=== PATIENT | male | born 1960 | race Caucasian/White ===

== ENCOUNTER 2018-12-21 06:04 | Day surgery (SDC) | payer MEDICARE, BC ==
[2018-12-21] MEDS ORDERED: PROPOFOL 20 ML (07:34)
[2018-12-21] MEDS ORDERED: CLINDAMYCIN 900 MG/D5W (PMX) 50 ML IVPB (07:34)
[2018-12-21] MEDS ORDERED: LIDOCAINE 2% (SDV) 5 ML INJ (07:34)
[2018-12-21] MEDS ORDERED: FENTAnyl 50 MCG/ML VIAL (07:35)
[2018-12-21] MEDS ORDERED: MIDAZOLAM 1 MG/ML 2 ML INJ (07:35)
[2018-12-21] MEDS ORDERED: BUPIVACAINE 0.5% (SDV) 30 ML INJ (07:42)
[2018-12-21] MEDS ORDERED: ONDANSETRON 4 MG INJ (08:14)
[2018-12-21] MEDS ORDERED: METOCLOPRAMIDE 10 MG INJ (08:14)
[2018-12-21] MEDS ORDERED: FAMOTIDINE 20 MG INJ (08:14)
[2018-12-21 08:29] LABS: INR 0.95; PROTIME 12.8 Sec (11.9-14.9)
[2018-12-21 08:30] LABS: PARTIAL THROMBOPLASTIN TIME 29.9 Sec (23.0-35.0)
[2018-12-21] MEDS: LIDOCAINE 1% (MPF) 30 ML INJ (08:32)
[2018-12-21] MEDS: POVIDONE IODINE 10% 28.4 GM OINT (08:32)
[2018-12-21] MEDS: POLYMYXIN/BACITRACIN 1L IRRIG (08:32)
[2018-12-21] MEDS ORDERED: KETOROLAC 30 MG INJ (08:52)
[2018-12-21] MEDS ORDERED: GLYCOPYRROLATE 0.4 MG INJ (08:59)
[2018-12-21] MEDS ORDERED: ONDANSETRON 4 MG INJ IV (09:00)
[2018-12-21] MEDS ORDERED: LABETALOL HCL 20MG INJ IV (09:00)
[2018-12-21] MEDS ORDERED: ALBUTEROL 0.083% (NEB) 2.5 MG/3 ML AMP HHN (09:00)
[2018-12-21] MEDS ORDERED: MIDAZOLAM 1 MG/ML 2 ML INJ IV (09:00)
[2018-12-21] MEDS ORDERED: OXYCODONE/ACETAMINOPHEN (5/325) TAB PO ×2 (09:00)
[2018-12-21] MEDS ORDERED: MEPERIDINE 25 MG INJ IV (09:00)
[2018-12-21] MEDS ORDERED: HYDROmorphONE 1 MG/5 ML IV SYRINGE IV ×3 (09:00)
== END 2018-12-21 10:50 | disposition home or self-care (01) ==
LOC: SDS 06:04
DX: M20.41 Other hammer toe(s) (acquired), right foot (principal); Z87.891 Personal history of nicotine dependence; E11.51 Type 2 diabetes mellitus with diabetic peripheral angiopathy without gangrene; I10 Essential (primary) hypertension
CPT/HCPCS: 28285; 82962; 85610; 85730; 88304; 88311; 93005